=== PATIENT | female | born 1960 | race Caucasian/White ===

== ENCOUNTER 2016-12-03 19:05 | Emergency (ER) | payer OTHER ==
[2016-12-03] MEDS ORDERED: AMPICILLIN/SULBACTAM 3 GM in NS 100 ML IV ONE (19:54)
[2016-12-03] MEDS ORDERED: SULFAMETHOX/TMP 800/160 MG 1 TAB PO ONE (19:54)
[2016-12-03] MEDS ORDERED: NS 1,000 ML IV ONE (19:55)
--- NOTE | 2016-12-03 20:52 | EDPHY ---
H & P Stated Complaint: L deleon lac -swelling--fell in wood slash pile 3 days ago HPI/ROS: Chief complaint: Left deleon laceration, possible leg infection History of present illness: This is a 56-year-old female who presents to the emergency department for evaluation of a left deleon laceration that she is concerned has gotten infected. Patient states 2 days ago she tripped and fell striking her left deleon against a pile of wood cutting it. She attempted to clean it and dress it. However has become painful. She has noted discharge. The leg is become uncomfortable slightly swollen and red. She denies other associated signs or symptoms including no fevers, no red streaking up the leg, no pain in the back of the leg, no abnormal coolness or paresthesias in the leg , no other lesions. Her tetanus is up-to-date. Review of systems: 10 point review of systems was obtained and other than described above was negative - Personal History Current Tetanus/Diphtheria Vaccine: Yes Current Tetanus Diphtheria and Acellular Pertussis (TDAP): Yes Tetanus Vaccine Date: 2016 - Medical/Surgical History Hx Asthma: No Hx Chronic Respiratory Disease: No Hx Diabetes: No Hx Cardiac Disease: No Hx Renal Disease: No Hx Cirrhosis: No Hx Alcoholism: No Hx HIV/AIDS: No Hx Splenectomy or Spleen Trauma: No Other PMH: htn - Social History Smoking Status: Never smoked - Physical Exam Exam: General: Alert, nontoxic Skin: 3 cm avulsion to the left deleon. There is pustular discharge. There is surrounding erythema and edema to the anterior deleon down to the ankle. The posterior aspect of the leg is unaffected. There is no red streaking up the leg. Musculoskeletal: Patient is moving the left leg, all joints all santos without difficulty. She is ambulating well. Vascular: DP and PT pulses 2+. Neurologic: Sensation intact throughout the left leg. Constitutional: Initial Vital Signs Temperature (C) 36.9 C 12/03/16 19:14 Heart Rate 112 H 12/03/16 19:14 Respiratory Rate 18 12/03/16 19:14 Blood Pressure 153/110 H 12/03/16 19:14 O2 Sat (%) 98 12/03/16 19:14 O2 Delivery Mode Room Air Allergies/Adverse Reactions: No Known Allergies Allergy (Unverified 12/03/16 21:40) Home Medications: Medication Instructions Recorded Amoxicillin/Clavulanate Pot 875 mg PO BID 10 Days 12/03/16 [Augmentin 875 MG TAB (*)] Sulfamethox/Tmp 800/160 mg 1 tab PO BID 10 Days 12/03/16 [Bactrim Ds] Medical Decision Making - Diagnostics Imaging Results: Imaging Impressions Tibia/Fibula X-Ray 12/03/16 20:40 Impression: Negative for fracture. Imaging: I viewed and interpreted images myself Procedures: The wound was anesthetized with 1% lidocaine with epinephrine. It was irrigated. It was explored, no foreign bodies noted. It was dressed. ED Course/Re-evaluation: Patient is discussed with my secondary supervising physician Dr. Zulay Anglin. Patient presents to the emergency department with what appears to be a leg wound with associated cellulitis. She is nontoxic. Her leg is neurovascularly intact. X-ray is negative. The wound is cleaned and dressed, is not closed given length of time since injury and infection. She is started on Unasyn given that this was secondary to a cut from a pile of wood although she is also started on Bactrim in case there is a MRSA component. She will be discharged home on Augmentin and Bactrim for full coverage. She is asked to follow up with primary care doctor for recheck. Return precautions are given. Patient voiced understanding and agreement with plan. Differential Diagnosis: Included but not limited to cellulitis, abscess, this is not consistent with thromboembolic disease. - Data Points Medications Given: Discontinued Medications Ampicillin Sodium/Sulbactam (Sodium 3 gm/ Sodium Chloride) 100 mls @ 200 mls/ hr IV EDNOW ONE PRN Reason: Protocol Stop: 12/03/16 20:23 Last Admin: 12/03/16 20:16 Dose: 100 mls Sodium Chloride (Ns) 1,000 mls @ 0 mls/hr IV EDNOW ONE; Wide Open PRN Reason: Protocol Stop: 12/03/16 19:56 Last Admin: 12/03/16 20:15 Dose: 1,000 mls Trimethoprim/Sulfamethoxazole (Bactrim Ds) 1 ea PO EDNOW ONE PRN Reason: Protocol Stop: 12/03/16 19:55 Last Admin: 12/03/16 21:58 Dose: 1 ea Departure - Departure Disposition: Home, Routine, Self-Care Clinical Impression: Cellulitis Condition: Good Instructions: Cellulitis (ED) Additional Instructions: Follow-up with your primary care doctor in the next 1-2 days for recheck Take antibiotics as prescribed until finished even feeling better If symptoms worsen or new symptoms develop return to the emergency room for recheck Referrals: Carrillo Fields MD [Primary Care Provider] - As per Instructions Prescriptions: Amoxicillin/Clavulanate Pot [Augmentin 875 MG TAB (*)] 875 mg PO BID 10 Days Sulfamethox/Tmp 800/160 mg [Bactrim Ds] 1 tab PO BID 10 Days
[2016-12-03 21:52] VITALS: BP 152/102; PULSE 81; TEMP 97.9; O2SAT 96
[2016-12-03 22:15] VITALS: RESP 16
== END 2016-12-03 22:15 | disposition home or self-care (01) ==
DX: L03.116 Cellulitis of left lower limb (principal); I10 Essential (primary) hypertension; E86.9 Volume depletion, unspecified
CPT/HCPCS: 96365; J0295

== ENCOUNTER → 2017-07-04 | Outpatient (CLI) | payer OTHER | LOC: FIMAGING 13:02 | PROVIDERS: ATTEND Family Medicine | DX: Z12.31 Encounter for screening mammogram for malignant neoplasm of breast (principal); Z80.3 Family history of malignant neoplasm of breast ==

== ENCOUNTER → 2017-07-10 | Outpatient (CLI) | payer OTHER ==
[~2017-07-10] MED LIST: GADOBUTROL 10 ML VIAL IVP ONE
== END ==
LOC: FIMAGING 15:17
PROVIDERS: ATTEND Family Medicine
DX: K76.0 Fatty (change of) liver, not elsewhere classified (principal); K76.89 Other specified diseases of liver; R16.0 Hepatomegaly, not elsewhere classified
CPT/HCPCS: A9585

== ENCOUNTER 2017-09-25 20:15 | Emergency (ER) | payer OTHER ==
[2017-09-25 20:22] VITALS: BP 122/98
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
== END 2017-09-25 20:40 | disposition home or self-care (01) ==
LOC: EEVIPCON 20:15
DX: Z04.1 Encounter for examination and observation following transport accident (principal); I10 Essential (primary) hypertension; V89.1XXA Person injured in unspecified nonmotor-vehicle accident, nontraffic, initial encounter; Y92.481 Parking lot as the place of occurrence of the external cause

== ENCOUNTER → 2018-06-05 | Day surgery (SDC) | payer OTHER ==
[~2018-06-05] MED LIST changes: +BUPIVACAINE 0.25% 30 ML SDV ONE; +DEPO METHYLPREDNISOLONE 40 MG/ML SDV ONE; -GADOBUTROL 10 ML VIAL IVP ONE; +LIDOCAINE 1% 300 MG/30 ML SDV ONE
== END | disposition home or self-care (01) ==
LOC: FIMAGING 11:08
PROVIDERS: ATTEND Family Medicine
DX: M46.1 Sacroiliitis, not elsewhere classified (principal)
CPT/HCPCS: J1030